=== PATIENT | female | born 1990 | race Caucasian/White ===

== ENCOUNTER 2023-10-25 18:21 | Emergency (ER) | payer OTHER, MEDICAID, SELFPAY ==
[2023-10-25 18:31] VITALS: BP 128/78; PULSE 111; RESP 16; TEMP 37.2; O2SAT 100
[2023-10-25 18:42] VITALS: BP 128/78; PULSE 111; RESP 16; TEMP 37.2; O2SAT 100
--- NOTE | 2023-10-25 19:03 | ED.GENADULT ---
HPI - General Adult General Chief complaint: Skin/Abscess/Foreign Body Stated complaint: Skin Problem Source: patient Mode of arrival: ambulatory Limitations: no limitations History of Present Illness HPI narrative: Patient presents for evaluation of a painful swollen lesion to the left axillary region for the last week. She indicates 2 days ago she noted some bloody drainage from the affected area. She attempted to express more fluid and saw some green drainage at that time. She reports fever without chills. Reports nausea without vomiting. She rates her pain 8/10 in severity. She is not diabetic. She has not been taking any medication to assist with her symptoms. Related Data Allergies Allergy/AdvReac Type Severity Reaction Status Date / Time No Known Allergies Allergy Verified 10/25/23 18:28 Review of Systems Review of Systems: CONSTITUTIONAL: Denies fever, chills, or sweats. EYES: Denies visual changes, redness, or discharge. ENT: Denies rhinorrhea, congestion, sore throat, or otalgia. CARDIOVASCULAR: Denies chest pain, palpitations, or edema. RESPIRATORY: Denies cough or dyspnea. GASTROINTESTINAL: Denies abdominal pain, nausea, vomiting, or diarrhea. GENITOURINARY: Denies dysuria or hematuria. SKIN: Reports painful, swollen, erythematous lesion to the left axillary region. MUSCULOSKELETAL: Denies back pain, joint pain, or myalgia. NEUROLOGIC: Denies headache, numbness, dizziness, or weakness. PSYCHIATRIC: Denies anxiety or depression. PMFSH Past Medical History Medical History (Updated 10/25/23 @ 19:36 by MISAEL Courtney, ) Abscess Surgical History Surgical History No pertinent past surgical history Family History Family History (Updated 10/25/23 @ 19:36 by MISAEL Courtney, ) Mother Renal cell carcinoma Social History Social History Smoking packs per day: 0.25 Smoking cigarettes per day: 5.0 Smoking status: Current every day smoker Tobacco type: cigarettes Living arrangements: with family Gender identity (if verbalized by the patient): Female Exam Narrative: GENERAL: Well-appearing, well-nourished, and in no acute distress. HEAD: Normocephalic, atraumatic. EYES: PERRLA and EOMI. ENT: Nares clear, no rhinorrhea or epistaxis. Mucous membranes moist. Oropharynx without tonsillar hypertrophy exudate or other lesions. Bilateral TMs pearly ricardo nonbulging NECK: Supple. No adenopathy or masses. No carotid bruits or JVD CHEST: Clear to auscultation. No respiratory distress. No wheezes rales or rhonchi HEART: Regular rate and rhythm. No murmur heard. Normal peripheral pulses. ABDOMEN: Soft, nontender, nondistended, normal active bowel sounds. EXTREMITIES: Normal range of motion. No edema. SKIN: Persists 7 x 7 cm raised indurated erythematous area to the left axillary region with a small area of central fluctuance.. NEURO: No focal deficits. Alert and oriented x3. PSYCH: Normal mood and affect. Course Course Emergency Course: This is a 32-year-old female who presented for evaluation of an abscess to the left axilla. Incision and drainage was performed. Patient tolerated well. Wound culture obtained. Will discharge with Bactrim, Keflex, hydrocodone. Follow-up with primary provider. Go to the ER for worsening symptoms. Patient in agreement plan of care. Level of Care: Express Care Visit Vital Signs Vital signs: Vital Signs Temperature 37.2 C 10/25/23 18:31 Pulse Rate 111 H 10/25/23 18:31 Respiratory Rate 16 10/25/23 18:31 Blood Pressure 128/78 10/25/23 18:31 Pulse Oximetry 100 10/25/23 18:31 Oxygen Delivery Room Air 10/25/23 18:31 Temperature 37.2 C 10/25/23 18:42 Pulse Rate 111 H 10/25/23 18:42 Respiratory Rate 16 10/25/23 18:42 Blood Pressure 128/78 10/25/23 18:42 Pulse Oximetry 100
--- NOTE | 2023-10-25 19:10 | PC.NURSE ---
moved to rm 1 for i and d.
== END 2023-10-25 19:44 | disposition home or self-care (01) ==
PROVIDERS: Emergency Provider Nurse Practitioner
DX: L02.412 Cutaneous abscess of left axilla (principal); F17.210 Nicotine dependence, cigarettes, uncomplicated
CPT/HCPCS: 10060; 87070; 87075; 87081; 87181; 87205; 99203; G0463